=== PATIENT | female | born 1990 | race Hispanic/Latino ===

== ENCOUNTER 2024-02-19 10:22 | Emergency (ER) | payer SELFPAY ==
[2024-02-19 11:10] LABS: #Basophils 0.03 10x3/uL (0.0-0.2); #Eosinphils Less than 0.03 10x3/uL (0.0-0.7); %Basophils 0.2 % (0.0-1.0); %Eosinophils 0.2 % (0.0-10.0); %Monocytes 5.2 % (0.0-10.0); %Neutrophils 80.8 % (42.0-75.0); Hematocrit 45.2 % (36.0-47.0); Hemoglobin 15.1 g/dL (12.0-16.0); Mean Corpuscular HGB CONC 33.4 g/dL (32.0-36.0); Mean Corpuscular Hemoglobin 30.4 pg (27.0-31.0); Mean Corpuscular Volume 90.9 fL (78.0-98.0); Mean Platelet Volume 10.6 fL (7.4-10.4); Platelet Count 329 10x3/uL (130-400); RBC Distribution Width 15.1 % (11.5-14.5); Red Blood Cell (RBC) Count 4.97 mill/uL (4.20-5.40)
[2024-02-19 11:23] LABS: BHCG - Serum Negative (NEGATIVE); Pregs Control Background? CLEAR/WHITE (CLR/WHITE); Pregs Control Bar Appear? YES (CONTROL BAR)
[2024-02-19 11:26] LABS: Troponin I Less than 0.010 ng/mL (< 0.028)
[2024-02-19 11:29] LABS: ALT (SGPT) 40 U/L (8-55); AST (SGOT) 70 U/L (5-34); Albumin 3.4 g/dL (3.5-5.0); Alkaline Phosphatase 176 U/L (40-110); Anion Gap 16 mmol/L (10-20); BUN (Urea Nitrogen) 18 mg/dL (7.0-18.7); Bilirubin, Total 1.6 mg/dL (0.2-1.2); Calc. Creatinine Clearance 0 mL/min (70-130); Calcium 9.4 mg/dL (7.8-10.44); Carbon Dioxide 17 mmol/L (22-29); Chloride 110 mmol/L (98-107); Estimated GFR 103; Globulin 4.7 g/dL (2.4-3.5); Glucose 115 mg/dL (70-105); Potassium 3.7 mmol/L (3.5-5.1); Protein, Total 8.1 g/dL (6.0-8.3); Sodium 139 mmol/L (136-145)
[2024-02-19] MEDS ORDERED: Acetaminophen 500 MG TAB ONE (11:56)
[2024-02-19] MEDS ORDERED: Pantoprazole 40 MG VIAL ONE (11:57)
[2024-02-19] MEDS ORDERED: Ketorolac Tromethamine 30 MG (1 mL) VIAL ONE (11:57)
[2024-02-19] MEDS ORDERED: Famotidine/PF 20 mg/2ml Vial ONE (11:57)
== END 2024-02-19 16:06 | disposition home or self-care (01) ==
LOC: ERS 10:22
DX: R07.9 Chest pain, unspecified (principal); R94.5 Abnormal results of liver function studies; K76.0 Fatty (change of) liver, not elsewhere classified; K80.20 Calculus of gallbladder without cholecystitis without obstruction
CPT/HCPCS: 36415; 71045; 71275; 74174; 76705; 80053; 84484; 84703; 85025; 93005; 96374; 96375; C9113; J1885; S0028

== ENCOUNTER 2024-02-21 21:09 | Inpatient (IN) | payer MEDICAID, SELFPAY ==
[2024-02-21 23:06] LABS: #Basophils 0.06 10x3/uL (0.0-0.2); %Basophils 0.4 % (0.0-1.0); %Eosinophils 0.3 % (0.0-10.0); %Lymphocytes 13.2 % (21.0-51.0); %Monocytes 5.8 % (0.0-10.0); %Neutrophils 79.6 % (42.0-75.0); Hemoglobin 14.7 g/dL (12.0-16.0); Mean Corpuscular HGB CONC 32.7 g/dL (32.0-36.0); Mean Corpuscular Hemoglobin 30.5 pg (27.0-31.0); Mean Corpuscular Volume 93.4 fL (78.0-98.0); Mean Platelet Volume 10.7 fL (7.4-10.4); Platelet Count 304 10x3/uL (130-400); RBC Distribution Width 15.1 % (11.5-14.5); Red Blood Cell (RBC) Count 4.82 mill/uL (4.20-5.40)
[2024-02-21 23:26] LABS: ALT (SGPT) 49 U/L (8-55); AST (SGOT) 41 U/L (5-34); Albumin 3.4 g/dL (3.5-5.0); Alkaline Phosphatase 167 U/L (40-110); Anion Gap 15 mmol/L (10-20); BUN (Urea Nitrogen) 14 mg/dL (7.0-18.7); Bilirubin, Total 0.8 mg/dL (0.2-1.2); Calc. Creatinine Clearance 0 mL/min (70-130); Calcium 9.4 mg/dL (7.8-10.44); Carbon Dioxide 20 mmol/L (22-29); Chloride 107 mmol/L (98-107); Estimated GFR 106; Globulin 4.2 g/dL (2.4-3.5); Glucose 107 mg/dL (70-105); Protein, Total 7.6 g/dL (6.0-8.3); Sodium 138 mmol/L (136-145)
[2024-02-22] MEDS ORDERED: Ketorolac Tromethamine 30 MG (1 mL) VIAL ONE (00:08)
[2024-02-22] MEDS ORDERED: Ondansetron PF 4 MG/2 ML Vial ONE (00:09)
[2024-02-22 02:40] VITALS: BMI 31.6
[2024-02-22] MEDS: Sodium Chloride 0.9% 1,000 ML IV SCH (03:06)
[2024-02-22] MEDS: Piperacillin/Tazobactam 3.375 GM in Sodium Chloride 0.9% 100 ML IVPB SCH ×2 (03:07→08:40)
[2024-02-22] MEDS ORDERED: Piperacillin/Tazobactam 2.25 GM in Sodium Chloride 0.9% 100 ML IVPB SCH (06:00)
[2024-02-22 07:04] LABS: #Basophils 0.04 10x3/uL (0.0-0.2); %Basophils 0.5 % (0.0-1.0); %Eosinophils 1.5 % (0.0-10.0); %Lymphocytes 33.6 % (21.0-51.0); %Monocytes 8.2 % (0.0-10.0); %Neutrophils 55.7 % (42.0-75.0); Hematocrit 41.4 % (36.0-47.0); Hemoglobin 13.5 g/dL (12.0-16.0); Mean Corpuscular HGB CONC 32.6 g/dL (32.0-36.0); Mean Corpuscular Hemoglobin 29.9 pg (27.0-31.0); Mean Corpuscular Volume 91.8 fL (78.0-98.0); Mean Platelet Volume 10.9 fL (7.4-10.4); Platelet Count 281 10x3/uL (130-400); RBC Distribution Width 14.9 % (11.5-14.5); Red Blood Cell (RBC) Count 4.51 mill/uL (4.20-5.40)
[2024-02-22 07:28] LABS: ALT (SGPT) 62 U/L (8-55); AST (SGOT) 54 U/L (5-34); Albumin 2.9 g/dL (3.5-5.0); Alkaline Phosphatase 149 U/L (40-110); Anion Gap 11 mmol/L (10-20); BUN (Urea Nitrogen) 12 mg/dL (7.0-18.7); Bilirubin, Total 0.6 mg/dL (0.2-1.2); Calc. Creatinine Clearance 136 mL/min (70-130); Calcium 8.5 mg/dL (7.8-10.44); Carbon Dioxide 21 mmol/L (22-29); Chloride 113 mmol/L (98-107); Estimated GFR 108; Globulin 3.6 g/dL (2.4-3.5); Glucose 95 mg/dL (70-105); Potassium 4.2 mmol/L (3.5-5.1); Protein, Total 6.5 g/dL (6.0-8.3); Sodium 141 mmol/L (136-145)
[2024-02-22] MEDS: Morphine 2 MG/ML VIAL SLOW IVP PRN (08:38)
[2024-02-22] MEDS ORDERED: Ibuprofen 600 MG TAB PO PRN (13:02)
[2024-02-22] MEDS ORDERED: traMADol HCl 50 MG TAB PO PRN (13:02)
[2024-02-22] MEDS: Acetaminophen 325 MG TAB PO SCH (13:12)
[2024-02-22] MEDS: traMADol HCl 50 MG TAB PO SCH (18:01)
[2024-02-22] MEDS: Ondansetron PF 4 MG/2 ML Vial IVP PRN (18:02)
[2024-02-23] MEDS ORDERED: EPINEPHrine 1 MG/ML VIAL ONE (11:29)
[2024-02-23] MEDS ORDERED: Bupivacaine 0.25% HCL 30 ML VIAL ONE (11:30)
[2024-02-23] MEDS ORDERED: fentaNYL PF 100 MCG/2 ML SYRINGE ONE (11:54)
[2024-02-23] MEDS ORDERED: Midazolam HCl 2 mg/2 ml Vial ONE (11:54)
[2024-02-23] MEDS ORDERED: PROPOFOL 20 ML ONE (11:54)
[2024-02-23] MEDS ORDERED: Dexamethasone 20 MG/5 ML VIAL ONE (11:57)
[2024-02-23] MEDS ORDERED: Ondansetron PF 4 MG/2 ML Vial ONE (11:57)
[2024-02-23] MEDS ORDERED: CEFAZOLIN 2 GM VIAL ONE (12:00)
[2024-02-23] MEDS ORDERED: Sodium Chloride 0.9% 100 ML ONE (12:01)
[2024-02-23] MEDS ORDERED: SUCCINYLCHOLINE/SOD CL,ISO/PF 200 MG/10 ML SYRINGE FS ONE (12:15)
[2024-02-23] MEDS ORDERED: Lidocaine 1% PF 5 ML VIAL ONE (12:15)
[2024-02-23] MEDS ORDERED: SUGAMMADEX SODIUM 200 MG/2 ML VIAL ONE (12:59)
[2024-02-23] MEDS ORDERED: Dextrose 50% Abboject 50 ML SYRINGE SLOW IVP PRN (13:08)
[2024-02-23] MEDS ORDERED: Glucagon 1 MG/ML KIT IM PRN (13:08)
[2024-02-23] MEDS ORDERED: Dextrose 5% in Water 1,000 ML IV PRN (13:08)
[2024-02-23] MEDS ORDERED: Ipratropium/Albuterol 3 ML NEB NEB PRN (13:08)
[2024-02-23] MEDS ORDERED: Mag-Al 1200 mg/1200 mg/30 ML UDCUP PO PRN (13:08)
[2024-02-23] MEDS ORDERED: Calcium Carbonate 500 MG ChewTAB PO PRN (13:08)
[2024-02-23] MEDS ORDERED: Ondansetron PF 4 MG/2 ML Vial IVP PRN (13:08)
[2024-02-23] MEDS ORDERED: HYDROmorphone 2 MG/ML VIAL ONE (13:14)
[2024-02-23] MEDS ORDERED: HYDROcodone/Acetaminophen 5/325 mg Tablet PO PRN (13:26)
[2024-02-23] MEDS ORDERED: fentaNYL 50 mcg/mL 1 mL Vial ONE (14:04)
[2024-02-23] MEDS: D5 1/2 NS w/20 mEq KCL 1,000 ML IV SCH (16:33)
[2024-02-23] MEDS: Ketorolac Tromethamine 30 MG (1 mL) VIAL IVP SCH (19:06)
[2024-02-23] MEDS: Docusate 100 MG CAP PO SCH (20:02)
[2024-02-23] MEDS: Famotidine 20 MG TAB PO SCH (20:02)
[2024-02-23] MEDS: Enoxaparin 40 MG (0.4 mL) SYRINGE SC SCH (20:03)
[2024-02-24 08:13] VITALS: BP 120/79; TEMP 98.2
[2024-02-28] MEDS ORDERED: Ibuprofen 600 MG TAB PO PRN (23:59)
== END 2024-02-24 10:50 | disposition home or self-care (01) | DRG 769 ==
LOC: ERS 21:09 → OBSVTOIN 02-22 00:29 → SURG B 02-22 00:29
PROVIDERS: ADMIT Surgery; ATTEND Surgery
PROC: 0FT44ZZ Resection of Gallbladder, Percutaneous Endoscopic Approach (ICD-10-PCS; principal; 2024-02-23)
PROC: 3E033XZ Introduction of Vasopressor into Peripheral Vein, Percutaneous Approach (ICD-10-PCS; 2024-02-23)
DX: O99.63 Diseases of the digestive system complicating the puerperium (principal); K80.00 Calculus of gallbladder with acute cholecystitis without obstruction
CPT/HCPCS: 36415; 76705; 80053; 83605; 85025; 87040; 88304; 96361; 96374; 96375; C1713; C1889; J0171; J0665; J1100; J1170; J1650; J1885; J2250; J2272; J2405; J2543; J2704; J3010; J3480; J3490; J7050